=== PATIENT | female | born 1950 | race Caucasian/White ===

== ENCOUNTER 2016-09-16 08:24 | Day surgery (SDC) | payer OTHER ==
[~2016-09-16] VITALS: Ht 157.5 cm; Wt 76.2 kg
[~2016-09-16 08:24] MED LIST: AMOXICILLIN500 M1 PO; ASPIR 8181 M1 PO; AZOPT 1% O200 DROP/1 LEFT EYE; BACTRIM,SEPT1 TABLE1 PO; COMBIGAN O20 DROP/5 LEFT EYE; COREG6.25 M1 PO; DESOWEN60 GM TP; HUMALOG100 UNIT/2 SC; HYDROCHLOROTHIA25 MG PO; LANTUS 3 M100 UNITS1 SC; PEPCID20 MG PO; PRAVACHOL10 MG PO; PRAVASTATIN SOD10 MG PO; PRED FORTE100 DROP/5 LEFT EYE; TRAMADOL HCL50 MG PO
[2016-09-16 08:59] LABS: POINT-OF-CARE METER ID UU14174212
[2016-09-16 09:51] VITALS: BP 179/74
[2016-09-16 13:21] LABS: POINT-OF-CARE METER ID UU13113675
[2016-09-16 13:52] VITALS: BP 198/82
[2016-09-16 14:47] VITALS: BP 177/77
== END 2016-09-16 14:50 | disposition home or self-care (01) ==
LOC: SDC 08:24
PROVIDERS: Ophthalmology
DX: H33.41 Traction detachment of retina, right eye (principal); E11.3591 Type 2 diabetes mellitus with proliferative diabetic retinopathy without macular edema, right eye; I10 Essential (primary) hypertension; K21.9 Gastro-esophageal reflux disease without esophagitis; E11.42 Type 2 diabetes mellitus with diabetic polyneuropathy; I50.9 Heart failure, unspecified
CPT/HCPCS: 82948; J0690; J1100; J1120; J2405; J2795; J3010; J3300